=== PATIENT | male | born 1975 | race Caucasian/White ===

== ENCOUNTER 2018-01-12 16:46 | Emergency (ER) | payer OTHER ==
[2018-01-12] MEDS ORDERED: TORAdol 30 mg Injection IM ONE (17:54)
[2018-01-12] MEDS ORDERED: TORAdol 30 mg Injection ONE (17:57)
--- NOTE | 2018-01-12 17:59 | ERPHSYRPT ---
- History of Present Illness Time Seen by Provider: 01/12/18 17:50 Source: patient Exam Limitations: no limitations Patient Subjective Stated Complaint: states twisted left ankle thursday and used an ritchie wrap yesterday. states is not any better today. Triage Nursing Assessment: ambulated to room per self. guarding left ankle and foot. foot warm, normal color, slight swelling noted. good pedal pulse noted. Physician History: 42-year-old white male arrives with complaint of pain in his left ankle for 2 days. According to the patient he twisted his ankle Thursday 2 days ago going down stairs at home he states he has been having pain in the left ankle both medially and laterally. He states he tried placing Ritchie wrap on his ankle yesterday and working but he still has pain in the left ankle. Past medical history patient denies. Past surgical history includes tonsillectomy hernia repair orthopedic surgery with left ankle surgery 2. Social history patient denies tobacco alcohol or illicit drug use. Method of Injury: twisted Occurred: days ago (2 days ago) Quality: constant Severity of Pain-Max: moderate Severity of Pain-Current: moderate Lower Extremities Pain: ankle: left Modifying Factors: Improves With: other (walking) Allergies/Adverse Reactions: No Known Drug Allergies Allergy (Unverified 01/12/18 17:14) Hx Tetanus, Diphtheria Vaccination/Date Given: Yes Hx Influenza Vaccination/Date Given: Yes Hx Pneumococcal Vaccination/Date Given: No - Review of Systems Constitutional: No Fever, No Chills Eyes: No Symptoms Ears, Nose, & Throat: Ear Pain (pain right ear) Respiratory: No Cough, No Dyspnea Cardiac: No Chest Pain, No Edema, No Syncope Abdominal/Gastrointestinal: No Abdominal Pain, No Nausea, No Vomiting, No Diarrhea Genitourinary Symptoms: No Dysuria Musculoskeletal: Other (left ankle pain) Skin: No Rash Neurological: No Dizziness, No Focal Weakness, No Sensory Changes Psychological: No Symptoms Endocrine: No Symptoms All Other Systems: Reviewed and Negative - Past Medical History Pertinent Past Medical History: No - Past Surgical History Past Surgical History: Yes Gastrointestinal: Hernia Repair Musculoskeletal: Orthopedic Surgery Other Surgical History: left ankle surgery twice - Social History Smoking Status: Former smoker Exposure to second hand smoke: No Drug Use: none Patient Lives Alone: No - Nursing Vital Signs Nursing Vital Signs: Initial Vital Signs Temperature 98.2 F 01/12/18 17:01 Pulse Rate 70 01/12/18 17:01 Respiratory Rate 16 01/12/18 17:01 Blood Pressure 137/89 01/12/18 17:01 O2 Sat by Pulse Oximetry 97 01/12/18 17:01 Pain Scale Pain Intensity 6 - Physical Exam General Appearance: mild distress Eyes, Ears, Nose, Throat Exam: TMs normal, moist mucous membranes, other (pain with traction right auricle right canal erythematous) Neck Exam: non-tender, supple Cardiovascular/Respiratory Exam: chest non-tender, normal breath sounds, regular rate/rhythm, no respiratory distress Gastrointestinal/Abdominal Exam: non-tender, guarding Hips Exam: bilateral: non-tender, normal inspection, normal range of motion, no evidence of injury Legs Exam: bilateral leg: non-tender, normal inspection, normal range of motion , no evidence of injury Knees Exam: bilateral knee: non-tender, normal inspection, normal range of motion, no evidence of injury Ankle Exam: right ankle: non-tender, normal inspection, normal range of motion, no evidence of injury, left ankle: other (left ankle tender with palpation medially and laterally, decreased range of motion left ankle secondary to pain, left dorsal pedal posterior tibial pulses equal 2/4) Foot Exam: bilateral foot: non-tender, normal inspection, normal range of motion , no evidence of injury DTR - Lower Extremities Exam: ankle (R): 2+, ankle (L): 2+ Neuro/Tendon Exam: normal sensation, normal motor functions Mental Status Exam: alert Skin Exam: normal color, warm, dry SpO2 Interpretation: normal (96%) SpO2: 96 Oxygen Delivery: Room Air - Course Nursing assessment & vital signs reviewed: Yes - Radiology Exams Left Ankle X-ray Interpretation: Interpreted by me (x ray left ankle: hardware inplace no new fractures or subluxation) Ordered Tests: Active Orders 24 hr Category Date Time Status Ritchie Bandage Application -[facility] STAT Care 01/12/18 18:39 Active ANKLE (3 VIEWS) Stat Exams 01/12/18 17:23 Taken Medication Summary Discontinued Medications Generic Name Dose Route Start Last Admin Trade Name Freq PRN Reason Stop Dose Admin Ketorolac Tromethamine 60 mg 01/12/18 17:54 01/12/18 18:03 Toradol 30 Mg Injection IM 01/12/18 17:55 60 mg STAT ONE Administration Ketorolac Tromethamine Confirm 01/12/18 17:57 Toradol 30 Mg Injection Administered 01/12/18 17:58 Dose 60 mg .ROUTE .STK-MED ONE - Progress Progress: improved Progress Note: 01/12/18 18:45 42-year-old white male arrives with complaint of pain in his left ankle since 2 days. He states that he twisted his left ankle going down the stairs. He tried placing Ritchie wrap on his ankle and working yesterday when he states he had pain and pain has increased. He is also complaining of pain in his right ear and has pain with traction on his right ear right canal is erythematous TMs are both faith. X-ray of the patient's left ankle hardware in place no new fractures or subluxations. Will place Ritchie wrap on the patient's left ankle he does not think he can tolerate an air splint. Will also place patient on Cortisporin otic suspension. Will write for Levelock for pain for the patient. 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 Will give patient a work slip for today and tomorrow. - Departure Time of Disposition: 18:47 Departure Disposition: Home Clinical Impression: Left ankle sprain Qualifiers: Encounter type: initial encounter Involved ligament of ankle: unspecified ligament Qualified Code(s): S93.402A - Sprain of unspecified ligament of left ankle, initial encounter Left ankle pain Qualifiers: Chronicity: acute Qualified Code(s): M25.572 - Pain in left ankle and joints of left foot Right otitis externa Qualifiers: Otitis externa type: unspecified type Chronicity: acute Qualified Code(s): H60.501 - Unspecified acute noninfective otitis externa, right ear Condition: Fair Critical Care Time: No Referrals: DOCTOR,NO FAMILY [Primary Care Provider] - Instructions: Ankle Sprain (DC) Additional Instructions: Return home. Ice and elevate left ankle 24-48 hours. Advil OTC 2-3 tablets orally every 6 hours with food as needed for pain for up to 5 days. Levelock as prescribed. Cortisporin otic suspension 4 drops in the right ear 4 times a day 5 days. Follow-up with your family doctor if symptoms are worse, nono better in 48 hours , or persist longer than one week. Return for acute distress or for severe symptoms. Your x-rays have been preliminarily read they will be reread tomorrow you'll be contacted if any discrepancies are noted. Crutches, weightbearing as tolerated Prescriptions: Hydrocodone/Acetaminophen [Levelock 5-325 Tablet] 1 tab PO Q4-6HPRN PRN #12 tablet MDD 6 tablets PRN Reason: Pain
[2018-01-12 18:39] VITALS: O2SAT 96
[2018-01-12 18:59] VITALS: BP 136/94; PULSE 86
--- NOTE | 2018-01-13 10:54 | XRAY ---
Exam: Left ankle series from 01/12/2018. Comparison: None available. Indication: Twisted left ankle 2 days ago, history of prior surgery in 2006. Findings: AP, oblique, and 2 lateral images are submitted for evaluation. I again see evidence of metallic orthopedic hardware with an approximately 12.3 cm in length metallic sideplate fixed to the distal left fibula shaft by eight short orthopedic screws as well has a ninth long orthopedic screw, the latter traversing both the distal left fibula and tibia. There is extensive ossification/calcification in the projection of the distal portion of the interosseous membrane between the distal left tibia and fibula. This is chronic. I see no acute fracture or dislocation of the left ankle. A small calcification is seen posterior to the distal left tibia on both lateral images which I believe is old. The plantar arch of the hindfoot appears unremarkable. There is a minimal plantar left calcaneal spur. The left ankle mortise appears well-preserved and is uniform on these nonstressed images. Impression: 1. No acute fracture of the left ankle is seen. 2. Metallic orthopedic hardware is seen within the distal left lower leg, as described above.
== END 2018-01-12 19:03 | disposition home or self-care (01) ==
LOC: ED 16:46
DX: S93.402A Sprain of unspecified ligament of left ankle, initial encounter (principal); M25.572 Pain in left ankle and joints of left foot; H60.501 Unspecified acute noninfective otitis externa, right ear; X50.0XXA Overexertion from strenuous movement or load, initial encounter; Z87.891 Personal history of nicotine dependence
CPT/HCPCS: 73610; 96372; 99284; J1885